=== PATIENT | female | born 1950 | race Caucasian/White ===

== ENCOUNTER 2017-08-08 21:15 | Emergency (ER) | payer OTHER ==
[~2017-08-08 21:15] MED LIST: ACT30 PO; ALBU1AER9 INH; ALLO300T2 PO; ASPI81TA21 PO; ATOR80TA PO; CHOL100027 PO; COLC0.6T54 PO; CYAN100020 PO; ESTR1CRE PV; GLC/500 PO; LEVO100T PO; LSN20 PO; METO25TA3 PO; MULT-506 PO; OMEP20CA59 PO; TORS20TA2 PO; TRAM-10 PO; TYLER650 PO
[2017-08-08 21:16] VITALS: TEMP 36.6
[2017-08-08] MEDS ORDERED: OXYCODONE HCL IR 5 MG TAB (IMMEDIATE RELEASE) PO STA (21:40)
--- NOTE | 2017-08-08 22:29 | DIAGNOSTIC IMAGING REPORT ---
R HUMERUS MIN 2 VIEWS ROUTINE CLINICAL HISTORY: Right arm pain status post trauma COMPARISON: None. DISCUSSION: There is a proximal humeral fracture demonstrating 16 mm of maximal displacement. The fracture involves the greater tuberosity. No dislocations visualized the provided images. IMPRESSION: Proximal humeral fracture. Electronically signed by: Scout Bowen M.D. 08/08/2017 10:28 PM Dictated Date/Time: 08/08/2017 10:27 PM
--- NOTE | 2017-08-08 22:31 | DIAGNOSTIC IMAGING REPORT ---
R FOREARM 2 VIEWS ROUTINE CLINICAL HISTORY: Right forearm pain status post trauma COMPARISON: None DISCUSSION: No acute fractures of the radius or ulna are visualized. There is an age-indeterminate navicular deformity. IMPRESSION: 1. No fractures of the radius or ulna 2. Age-indeterminate navicular deformity Electronically signed by: Scout Bowen M.D. 08/08/2017 10:29 PM Dictated Date/Time: 08/08/2017 10:28 PM
[2017-08-08] MEDS ORDERED: MoRPHine SULFATE 10 MG/ML CARP/VIAL IM STA (22:45)
[2017-08-08] MEDS ORDERED: OXYCODONE IR HOME PACK PO STA (22:46)
--- NOTE | 2017-08-08 22:57 | EMERGENCY ROOM VISIT NOTE ---
History First contact with patient: 21:19 Chief Complaint: ARM PAIN Stated Complaint: BROKEN R ARM History of Present Illness The patient is a 66 year old female who presents to the Emergency Room via private vehicle accompanied by male and female with complaints of "broken right arm". The patient states that 1 hour prior to arrival she was attempting to place a cover on her windshield because of the pending snow. She states that when doing so to see tripped, fell and struck her right arm off of the ground. She notes pain now in the right arm down to the elbow region. She denies striking her head or loss of consciousness. She does take 81 mg aspirin. Review of Systems A complete 6-point Review of Systems was discussed with the patient, with pertinent positives and negatives listed in the History of Present Illness. All remaining Review of Systems questions can be considered negative unless otherwise specified. Past Medical/Surgical History Medical Problems: (1) Bronchitis (2) Diabetes (3) Heart disease (4) Pneumonia Family History Cancer Diabetes mellitus FH: heart disease Hypertension Kidney disease Kidney stones Social History Smoking Status: Never Smoker Alcohol Use: none Housing Status: lives alone Occupation Status: retired Current/Historical Medications Scheduled Allopurinol (Zyloprim), 300 MG PO DAILY Aspirin Enteric Coated (Ecotrin Or Generic), 81 MG PO DAILY Atorvastatin Calcium (Lipitor), 80 MG PO DAILY Cholecalciferol (Vitamin D 1000 Unit), 1,000 INTER.UNIT PO DAILY Colchicine (Colchicine), 0.6 MG PO DAILY Cyanocobalamin (Vitamin B12), 1,000 MCG PO DAILY Levothyroxine Sodium (Synthroid), 100 MCG PO DAILY Lisinopril (Lisinopril), 20 MG PO DAILY Metformin Hcl (Glucophage), 500 MG PO BID Metoprolol Succinate (Toprol Xl), 25 MG PO DAILY Multivitamin (Multivitamin), 1 TAB PO DAILY Omeprazole (Prilosec), 20 MG PO DAILY Pioglitazone (Actos), 30 MG PO DAILY Torsemide (Demadex), 10 MG PO DAILY Scheduled PRN Tramadol (Ultram), 50 MG PO Q4H PRN for Pain Physical Exam Vital Signs Date Time Temp Pulse Resp B/P (MAP) Pulse Ox O2 Delivery O2 Flow Rate FiO2 08/08/17 21:16 36.6 104 20 165/87 95 Room Air Physical Exam VITAL SIGNS - Vital signs and nursing notes were reviewed. Stable. GENERAL - 66-year-old female appearing her stated age who is in no acute distress. Communicates well with provider and answers questions appropriately. SKIN - Without rashes. No petechial rashes. No evidence of skin integument disruption overlying the suspected fracture HEAD - NC/AT. EYES -no hyphema and sclera anicteric. EARS - No deformities of external structures noted on gross examination bilaterally. No blood from ear canals. NOSE - Midline and without cyanosis. No epistaxis or purulent drainage noted. MOUTH/OROPHARYNX - Without perioral cyanosis. NECK -no C-spine tenderness. EXTREMITIES - there is tenderness to palpation overlying the proximal humerus and distal humerus. No navicular tenderness. Decreased range of motion secondary to pain. She is neurovascularly intact right upper extremity. Medical Decision & Procedures ER Provider Diagnostic Interpretation: R FOREARM 2 VIEWS ROUTINE CLINICAL HISTORY: Right forearm pain status post trauma COMPARISON: None DISCUSSION: No acute fractures of the radius or ulna are visualized. There is an age-indeterminate navicular deformity. IMPRESSION: 1. No fractures of the radius or ulna 2. Age-indeterminate navicular deformity Electronically signed by: Scout Bowen M.D. 08/08/2017 10:29 PM Dictated Date/Time: 08/08/2017 10:28 PM R HUMERUS MIN 2 VIEWS ROUTINE CLINICAL HISTORY: Right arm pain status post trauma COMPARISON: None. DISCUSSION: There is a proximal humeral fracture demonstrating 16 mm of maximal displacement. The fracture involves the greater tuberosity. No dislocations visualized the provided images. IMPRESSION: Proximal humeral fracture. Electronically signed by: Scout Bowen M.D. 08/08/2017 10:28 PM Dictated Date/Time: 08/08/2017 10:27 PM Medications Administered Medications (Trade) Dose Ordered Sig/Henry Route Start Time Stop Time Status Last Admin Dose Admin Oxycodone HCl (Roxicodone Immediate Rel Tab) 5 mg NOW STAT PO 08/08/17 21:40 08/08/17 21:41 DC 08/08/17 21:48 5 MG Morphine Sulfate (MoRPHine SULFATE INJ) 6 mg NOW STAT IM 08/08/17 22:45 08/08/17 22:46 DC 08/08/17 22:53 6 MG Oxycodone HCl (Roxicodone Immediate Rel 5MG Home Pack) 1 homepack UD STAT PO 08/08/17 22:46 08/08/17 22:47 DC 08/08/17 22:52 1 [facility] Medical Decision Patient was seen and evaluated as above. She presents to us today status post fall. Pinpoint tenderness in the right humerus region. X-rays were obtained of this and the forearm. There is no navicular tenderness and there is an old fracture here both subjectively and radiographically identified. No acute tenderness. There is a proximal humerus fracture. Patient was offered inpatient management versus outpatient and she prefers to follow up with her established orthopedic surgeon in [place]. She will call him first thing on Wednesday. She'll be given a sling and swath here. She'll be given oxycodone for pain. She was also given morphine here and still notes that she would like to go home. No other injuries identified. At this time she appears stable from patient management. Blood pressure elevated oblique secondary to situation. Medication list reviewed. Patient case was also discussed with the attending physician who also personally evaluated the patient. After sling was applied the patient did still have excellent right radial pulse and was neurovascularly intact. No red flags identified in the [employer] drug monitoring system. In the evaluation and treatment of this patient, the following differential diagnoses were considered: Shoulder Contusion, Shoulder Fracture, Shoulder Dislocation, Thoracic Outlet Syndrome, Adhesive Capsulitis, Rotator Cuff Tear, Proximal Clavicle Head Fracture, Apical Pneumonia, Pneumothorax, Hemothorax, or TB. Impression Primary Impression: Arm pain, right Additional Impression: Fracture, humerus closed Departure Information Dispostion Home / Self-Care Condition GOOD Referrals Jer Reeder M.D. (PCP) Zeb Nazario D.O. Patient Instructions My [facility] Additional Instructions You have been treated in the Emergency Department for Shoulder Pain and a R humerus fracture. You have received pain medicine in the emergency department which impairs your ability to operate a vehicle. It is illegal for you to drive after receiving these medicines. You have been prescribed Oxy IR to be used for pain control. This is a narcotic medication. You cannot drive or consume alcohol while on this medicine. This medicine should only be used for pain that cannot be controlled with over-the- counter pain medicines. For pain control, you can use the following [id number] medicines (if >12 yo): - Regular strength (325mg/tab) Tylenol (acetaminophen) 2 tabs every 4-6 hours as needed. Do not exceed 12 tablets in a 24 hour period. Avoid taking more than 3 grams (3000 mg) of Tylenol per day. This includes any other sources of acetaminophen you may take on a regular basis. If this is a recent injury (<24 hrs), ice can be applied to the area of pain for the first 3 days to help decrease pain and inflammation. You have been provided the number for an Orthopaedic Surgeon. You should call this number as soon as possible to establish a follow-up visit from today's Emergency Department visit. Keep the shoulder brace/sling in place until evaluated by Orthopedics. Return to the Emergency Department if your current symptoms worsen despite treatment course outlined above, or if you develop any of the following symptoms : intractable pain despite aforementioned treatment course or new onset of numbness or tingling of the arm. Problem Qualifiers
[2017-08-08] MEDS ORDERED: OXYC1TAB3 PO ×2 (23:07→23:20)
[2017-08-08 23:26] VITALS: BP 181/91; PULSE 86; O2SAT 94
== END 2017-08-08 23:27 | disposition home or self-care (01) ==
LOC: C.EDB 21:15 → C.EDD 23:27
DX: S42.201A Unspecified fracture of upper end of right humerus, initial encounter for closed fracture (principal); W19.XXXA Unspecified fall, initial encounter; E11.9 Type 2 diabetes mellitus without complications; I51.9 Heart disease, unspecified; Z79.899 Other long term (current) drug therapy